=== PATIENT | male | born 1990 | race Two or more races ===

== ENCOUNTER 2019-04-19 18:20 | Emergency (ER) | payer BC, OTHER ==
[~2019-04-19] VITALS: Ht 188 cm; Wt 80.2 kg
[2019-04-19 19:40] VITALS: BP 140/82
== END 2019-04-19 20:22 | disposition home or self-care (01) ==
LOC: ED 19:51
DX: S01.81XA Laceration without foreign body of other part of head, initial encounter (principal); M70.31 Other bursitis of elbow, right elbow; W09.1XXA Fall from playground swing, initial encounter; Y93.89 Activity, other specified; Y92.89 Other specified places as the place of occurrence of the external cause; Y99.8 Other external cause status
CPT/HCPCS: 13132; 90471; 90715; 99285